=== PATIENT | female | born 1970 | race Caucasian/White ===

== ENCOUNTER 2016-10-24 06:53 | Emergency (ER) | payer SELFPAY ==
[2016-10-24] MEDS ORDERED: Ketorolac Tromethamine 30 MG/ML VIAL ONE (07:24)
[2016-10-24] MEDS ORDERED: Morphine Sulfate 2 MG/ML SYRINGE ONE ×2 (07:24→09:00)
[2016-10-24] MEDS ORDERED: diphenhydrAMINE HCl 50 MG/ML 1 ML VIAL ONE (07:24)
[2016-10-24] MEDS ORDERED: Ondansetron HCl/PF 4 MG/2 ML Vial ONE (07:24)
[2016-10-24 07:40] LABS: #Basophils 0.2 thou/uL (0.0-0.2); #Eosinphils 0.2 thou/uL (0.0-0.7); #Lymphocytes 3.6 thou/uL (1.20-3.40); #Monocytes 0.7 thou/uL (0.11-0.59); #Neutrophils 6.2 thou/uL (1.40-6.50); %Basophils 1.6 % (0.0-1.0); %Eosinophils 2.1 % (0.0-10.0); %Monocytes 6.3 % (0.0-10.0); Hemoglobin 16.3 g/dL (12.0-16.0); Mean Corpuscular HGB CONC 33.5 g/dL (32.0-36.0); Mean Corpuscular Hemoglobin 29.8 pg (27.0-31.0); Mean Corpuscular Volume 89.1 fl (81.0-99.0); Mean Platelet Volume 8.9 fL (7.4-10.4); Platelet Count 261 thou/uL (130-400); RBC Distribution Width 11.9 % (11.5-14.5); Red Blood Cell (RBC) Count 5.47 mill/uL (4.20-5.40); White Blood Cell (WBC) Count 10.9 thou/uL (4.8-10.8)
--- NOTE | 2016-10-24 07:40 | RAD ---
CHEST 1 VIEW: HISTORY: Chest and upper abdomen pain. COMPARISON: 05/20/16. FINDINGS: The cardiac silhouette is magnified by projection. Pulmonary vasculature is unremarkable. Mediasti num is midline. There is no lobar consolidation or evidence of pneumothorax. 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 IMPRESSION: No active cardiopulmonary abnormalities are demonstrated. POS: [facility]
[2016-10-24 07:49] LABS: ALT (SGPT) 27 U/L (8-55); AST (SGOT) 20 U/L (5-34); Albumin 4.2 g/dL (3.5-5.0); Alkaline Phosphatase 108 U/L (40-150); Anion Gap 16 mmol/L (10-20); BUN (Urea Nitrogen) 17 mg/dL (7.0-18.7); Bilirubin, Total Less than 0.3 mg/dL (0.2-1.2); Calc. Creatinine Clearance 0 mL/min (70-130); Calcium 9.4 mg/dL (7.8-10.44); Carbon Dioxide 18 mmol/L (22-29); Chloride 111 mmol/L (98-107); Estimated GFR-MDRD 62; Globulin 3.2 g/dL (2.4-3.5); Glucose 120 mg/dL (70-105); Lipase 42 U/L (8-78); Potassium 3.9 mmol/L (3.5-5.1); Protein, Total 7.4 g/dL (6.0-8.3); Sodium 141 mmol/L (136-145)
[2016-10-24 08:41] LABS: Bacteria/HPF Rare-Few HPF (None Seen); Bilirubin Negative (Negative); Clarity Hazy (Clear); Glucose, Urine (Dipstick) Negative (Negative); Leukocyte Negative (Negative); Nitrite Negative (Negative); Protein, Urine (Dipstick) Negative (Neg-Trace); RBC/HPF 0-3 HPF (0-3); Renal Epithelial 0-3 HPF (0-3); Squamous Epithelial 21-50 HPF (0-3); Transitional Epithelial 0-3 HPF (0-3); Urobilinogen 0.2 mg/dL (0.2-1.0)
[2016-10-24 08:42] LABS: Blood, Urine Negative (Negative)
[2016-10-24] MEDS ORDERED: Sodium Chloride 0.9% 1,000 ML BAG ONE (11:46)
== END 2016-10-24 09:45 | disposition home or self-care (01) ==
LOC: MADERS 06:53
DX: K80.50 Calculus of bile duct without cholangitis or cholecystitis without obstruction (principal); F17.210 Nicotine dependence, cigarettes, uncomplicated
CPT/HCPCS: 36415; 71010; 80053; 81001; 82150; 83690; 85025; 87086; 96361; 96374; 96375; 96376; J1200; J1885; J2270; J2405; J7050

== ENCOUNTER 2019-01-25 19:27 | Emergency (ER) | payer SELFPAY | END 2019-01-25 20:24 | disposition home or self-care (01) | LOC: MADERS 19:27 | DX: S56.911A Strain of unspecified muscles, fascia and tendons at forearm level, right arm, initial encounter (principal); F17.210 Nicotine dependence, cigarettes, uncomplicated; G47.00 Insomnia, unspecified; X58.XXXA Exposure to other specified factors, initial encounter | CPT/HCPCS: 99281 ==

== ENCOUNTER 2021-04-01 07:39 | Emergency (ER) | payer SELFPAY ==
[2021-04-01 08:45] LABS: ALT (SGPT) 38 U/L (8-55); AST (SGOT) 24 U/L (5-34); Albumin 4.3 g/dL (3.5-5.0); Alkaline Phosphatase 114 U/L (40-110); Anion Gap 16 mmol/L (10-20); BUN (Urea Nitrogen) 19 mg/dL (9.8-20.1); Bilirubin, Total 0.5 mg/dL (0.2-1.2); Calc. Creatinine Clearance 0 mL/min (70-130); Calcium 10.1 mg/dL (7.8-10.44); Carbon Dioxide 26 mmol/L (22-29); Chloride 99 mmol/L (98-107); Globulin 3.6 g/dL (2.4-3.5); Glucose 158 mg/dL (70-105); Potassium 4.4 mmol/L (3.5-5.1); Protein, Total 7.9 g/dL (6.0-8.3); Sodium 137 mmol/L (136-145)
[2021-04-01] MEDS ORDERED: Ibuprofen 800 MG TAB ONE (08:51)
== END 2021-04-01 09:07 | disposition home or self-care (01) ==
LOC: MADERS 07:39
DX: S93.402A Sprain of unspecified ligament of left ankle, initial encounter (principal); G25.3 Myoclonus; G62.9 Polyneuropathy, unspecified; F17.210 Nicotine dependence, cigarettes, uncomplicated; Z79.899 Other long term (current) drug therapy; X50.9XXA Other and unspecified overexertion or strenuous movements or postures, initial encounter; Y93.01 Activity, walking, marching and hiking; Y92.096 Garden or yard of other non-institutional residence as the place of occurrence of the external cause
CPT/HCPCS: 80053